=== PATIENT | female | born 1940 | race Asian ===

== ENCOUNTER 2022-08-25 22:08 | Emergency (ER) | payer OTHER, MEDICARE ==
[~2022-08-25] VITALS: Ht 149.9 cm; Wt 39.0 kg
[2022-08-25 22:08] VITALS: BP_SYST 183
[2022-08-25] MEDS ORDERED: AMLO5TAB4 PO (22:29)
[2022-08-25] MEDS ORDERED: HYDROcodone/ACETAMIN 5-325 MG TAB (NORCO/ VICODIN) PO ONE (22:30)
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
[2022-08-25 22:52] LABS: BASOPHILS % (AUTO) 0.4 % (0.0-2.0); EOSINOPHILS # (AUTO) 0.4 K/uL (0.0-0.4); EOSINOPHILS % (AUTO) 4.9 % (0.0-4.0); HEMATOCRIT 40.9 % (36-48); HEMOGLOBIN 13.5 g/dL (12.0-16.0); LYMPHOCYTES # (AUTO) 1.6 K/uL (1.0-5.5); LYMPHOCYTES % (AUTO) 21.5 % (20.5-51.5); MEAN CORPUSCULAR HEMOGLOBIN 30 pg (27-31); MEAN CORPUSCULAR HGB CONC 33 % (32-36); MEAN CORPUSCULAR VOLUME 90 fL (79.0-98.0); MONOCYTES # (AUTO) 0.5 K/uL (0.0-1.0); MONOCYTES % (AUTO) 6.3 % (1.7-9.3); NEUTROPHILS # (AUTO) 4.9 K/uL (1.8-7.7); NEUTROPHILS % (AUTO) 66.9 % (40.0-70.0); PLATELET COUNT (AUTO) 201 K/uL (130-430); RED BLOOD CELL COUNT(AUTO) 4.56 MIL/uL (4.2-6.2); RED CELL DISTRIBUTION WIDTH 14.1 % (9.0-15.0); WHITE BLOOD COUNT (AUTO) 7.3 K/uL (4.8-10.8)
[2022-08-25 22:59] LABS: ANION GAP 6 (5-15); CALCIUM 8.4 mg/dL (8.4-11.0); CHLORIDE 103 mmol/L (98-107); CREATININE 0.88 mg/dL (0.55-1.30); GLUCOSE 118 mg/dL (70-99); UREA NITROGEN, BLOOD 23 mg/dL (8-21)
[2022-08-25] MEDS ORDERED: iohexoL 350 mgI/mL, 100 ML INFUS..BTL IV ONE (23:43)
--- NOTE | 2022-08-26 01:57 | NUR ---
Patient placed on 2L NC for oxygen going down to low 90's. Dr. Rice aware. Possible transfer to [facility]
--- NOTE | 2022-08-26 02:49 | NUR ---
Called Saniya, patient's daughter, regarding patient transfer to higher level of care. Left voice message and [place] contact number.
--- NOTE | 2022-08-26 02:50 | NUR ---
Called for report to [facility] CHRISTIE Buenrostro.
--- NOTE | 2022-08-26 02:55 | NUR ---
Called to give report to CHRISTIE Buenrostro from [facility] for continuity of care. Patient stable condition. No distress noted.
--- NOTE | 2022-08-26 03:03 | NUR ---
[facility] [place] Confirmation given, Authorization number [id number]
--- NOTE | 2022-08-26 05:17 | NUR ---
Called Juan at [facility] for [facility] transport. [facility] said they were "not aware to set up transportation." Asked Yane to please set up transportation now as BLS. CAL Carl and Dr. Rice made aware of situation. Patient made aware of transportation.
--- NOTE | 2022-08-26 05:32 | NUR ---
Called to [facility] regarding ETA: 6:30 am. [facility] to pick patient up.
[2022-08-26 06:50] VITALS: BP_SYST 135
--- NOTE | 2022-08-26 06:59 | NUR ---
Patient to be transferred to [facility]. Is being transferred due to higher level of care. Receiving facility has accepting physician and available space. ER physician has signed transfer form. Patient or responsible constitution party has agreed to transfer and signed form. Patient belongings inventoried and will be sent with patient. Copy of nursing notes, lab reports, EKG, Physicians Orders and X-rays to be sent with patient. Report called to at receiving facility. Receiving physician is . ambulance service has been called for transfer. ETA is .
--- NOTE | 2022-08-26 07:00 | NUR ---
eta 6:30 am
== END 2022-08-26 06:59 | disposition short-term general hospital (02) ==
LOC: SED 22:08
DX: S22.22XA Fracture of body of sternum, initial encounter for closed fracture (principal); S27.329A Contusion of lung, unspecified, initial encounter; I10 Essential (primary) hypertension; J45.909 Unspecified asthma, uncomplicated; Z79.899 Other long term (current) drug therapy; V89.2XXA Person injured in unspecified motor-vehicle accident, traffic, initial encounter; Y93.89 Activity, other specified; Y92.89 Other specified places as the place of occurrence of the external cause; Y99.8 Other external cause status
CPT/HCPCS: 99291; 80048; 85025; 84484; 36415; 93005; 71275; 76376; Q9967